=== PATIENT | female | born 1955 | race Caucasian/White ===

== ENCOUNTER 2021-05-28 11:19 | Emergency (ER) | payer BC, OTHER ==
[2021-05-28 12:48] VITALS: TEMP 98.2; BMI 35.0
[2021-05-28 15:36] VITALS: BP 174/75; PULSE 68
== END 2021-05-28 16:01 | disposition left against medical advice (07) ==
LOC: JERFT 11:19
DX: H57.12 Ocular pain, left eye (principal)
CPT/HCPCS: 99283-25; 99285-25

== ENCOUNTER 2024-10-18 07:00 | Emergency (ER) | payer BC, OTHER ==
[2024-10-18 07:13] VITALS: BP 125/57; PULSE 68; RESP 16; TEMP 98.3; BMI 30.8
[2024-10-18] MEDS ORDERED: ACETAMINOPHEN 500 MG TABLET (FP) ONE (07:40)
[2024-10-18] MEDS: ACETAMINOPHEN 500 MG TABLET (FP) PO ONE (07:49)
[2024-10-18] MEDS ORDERED: BACITRACIN ZINC 15 GM TUBE TOPICAL OINTMENT ONE (07:58)
[2024-10-18] MEDS: BACITRACIN ZINC 15 GM TUBE TOPICAL OINTMENT TP ONE (08:13)
== END 2024-10-18 09:53 | disposition home or self-care (01) ==
LOC: JERFT 07:00 → JER 07:00
PROC: 2W3CX1Z Immobilization of Right Lower Arm using Splint (ICD-10-PCS; principal; 2024-10-18)
DX: S60.511A Abrasion of right hand, initial encounter (principal); M25.531 Pain in right wrist; M25.521 Pain in right elbow; W01.0XXA Fall on same level from slipping, tripping and stumbling without subsequent striking against object, initial encounter
CPT/HCPCS: 73060-TC-RT-FY; 73070-TC-RT-FY; 73090-TC-RT-FY; 73110-TC-RT-FY; 73130-TC-RT-FY; 99283-25